=== PATIENT | male | born 1960 | race Caucasian/White ===

== ENCOUNTER 2017-09-25 22:12 | Inpatient (IN) ==
[2017-09-25 23:21] LABS: CKMB % 2.3 %
[2017-09-25 23:31] LABS: Troponin I Only 0.261 NG/ML (0.00-0.045)
[2017-09-25] MEDS ORDERED: ENOXAPARIN 80 MG/0.8 ML SYRINGE SUBCUT SCH (23:45)
[2017-09-25] MEDS ORDERED: GLUCAGON 1 MG VIAL IM PRN (23:49)
[2017-09-25] MEDS ORDERED: DEXTROSE 50% 25 GM/50 ML VIAL IV PRN (23:49)
[2017-09-26] MEDS: IPRATROPIUM 500 MCG/2.5 ML NEB RESP TX SCH ×2 (00:55→07:53)
[2017-09-26] MEDS: ALBUTEROL 2.5 MG/3 ML NEB RESP TX SCH ×2 (00:55→07:54)
[2017-09-26 01:45] LABS: Basophils # 0.1 10*3/uL (0.0-0.2); Basophils % 0.4 % (0.0-0.8); Eosinophils # 0.1 10*3/uL (0.0-0.87); Eosinophils % 0.5 % (0.00-10.9); Hematocrit 43.6 VOL% (42.0-52.0); Hemoglobin 14.5 GM/DL (14.0-18.0); Immature Granulocytes % 0.4 %; Immature Granulocytes Absolute 0.05 #; Lymphocytes # 2.1 10*3/uL (1.4-4.0); Lymphocytes % 16.5 % (21.2-54.2); Mean Corpuscular HGB Conc 33.3 GM/DL (32-36); Mean Corpuscular Hemoglobin 29 PG (27-34); Mean Corpuscular Volume 88.3 FL (87-102); Mean Platelet Volume 10.7 FL (9.6-12.0); Monocytes % 7.7 % (1.7-12.7); Neutrophils # 9.7 10*3/uL (1.4-7.4); Neutrophils % 74.5 % (38.7-73.9); Platelet Count 177 T/CUMM (130-400); Red Blood Count 4.94 MC/CUMM (3.8-5.5); Red Cell Distribution Width 14.1 % (9.3-17.3)
[2017-09-26 02:20] LABS: Calcium 8.2 MG/DL (8.5-10.1); Osmolality,Calculated 283.3 MOS/KG (273-304); Risk Ratio 7.44; Thyroid Stimulating Hormone 3.21 uIU/ml (0.358-3.74); VLDL CHOLESTEROL 23.4 MG/DL
[2017-09-26] MEDS: INSULIN LISPRO 100 UNIT/ML SUBCUT SCH ×4 (08:33→21:21)
[2017-09-26] MEDS: PANTOPRAZOLE 40 MG TABLET PO SCH (08:55)
[2017-09-26] MEDS ORDERED: ASPIRIN 325 MG TABLET PO SCH (09:00)
[2017-09-26] MEDS ORDERED: FUROSEMIDE 20 MG/2 ML VIAL IV SCH (09:00)
[2017-09-26] MEDS ORDERED: FUROSEMIDE 40 MG/4 ML VIAL IV SCH (09:14)
[2017-09-26] MEDS ORDERED: FUROSEMIDE 20 MG/2 ML VIAL IV ONE (09:25)
[2017-09-26] MEDS ORDERED: METOPROLOL SUCCINATE XL 25 MG TABLET PO ONE (10:30)
[2017-09-26] MEDS ORDERED: METOPROLOL TARTRATE 25 MG TABLET PO SCH ×2 (10:30→21:00)
[2017-09-26] MEDS ORDERED: LEVALBUTEROL 0.31 MG/3 ML NEB RESP TX PRN (10:51)
[2017-09-26] MEDS: ENOXAPARIN 80 MG/0.8 ML SYRINGE SUBCUT SCH ×2 (11:35→23:28)
[2017-09-26] MEDS: LOSARTAN 25 MG TABLET PO SCH (11:35)
[2017-09-26] MEDS: NITROGLYCERIN 2% OINT 1 INCH/GM PACK TOP SCH ×3 (11:54→23:39)
[2017-09-26] MEDS ORDERED: ALBUTEROL/IPRATROPIUM 3 ML NEB RESP TX SCH (13:00)
[2017-09-26] MEDS: FUROSEMIDE 40 MG/4 ML VIAL IV SCH (16:08)
[2017-09-26] MEDS ORDERED: METOPROLOL TARTRATE 5 MG/5 ML VIAL IV PRN (16:35)
[2017-09-26] MEDS: METOPROLOL TARTRATE 25 MG TABLET PO SCH (21:10)
[2017-09-27 05:41] LABS: Calcium 8.4 MG/DL (8.5-10.1); Osmolality,Calculated 277.7 MOS/KG (273-304); Potassium 3.7 MMOL/L (3.5-5.1)
[2017-09-27] MEDS: NITROGLYCERIN 2% OINT 1 INCH/GM PACK TOP SCH ×2 (05:52→11:21)
[2017-09-27] MEDS ORDERED: ASPIRIN CHEW 81 MG TABLET PO SCH (09:00)
[2017-09-27] MEDS: FUROSEMIDE 40 MG/4 ML VIAL IV SCH ×2 (09:53→15:09)
[2017-09-27] MEDS: LOSARTAN 25 MG TABLET PO SCH (09:58)
[2017-09-27] MEDS: METOPROLOL TARTRATE 25 MG TABLET PO SCH ×2 (09:58→21:52)
[2017-09-27] MEDS: ROSUVASTATIN 20 MG TABLET PO SCH (09:58)
[2017-09-27] MEDS: PANTOPRAZOLE 40 MG TABLET PO SCH (09:58)
[2017-09-27] MEDS: ENOXAPARIN 80 MG/0.8 ML SYRINGE SUBCUT SCH (10:00)
[2017-09-27] MEDS: INSULIN LISPRO 100 UNIT/ML SUBCUT SCH ×4 (10:14→21:52)
[2017-09-27 11:01] LABS: Troponin I Only 0.719 NG/ML (0.00-0.045)
[2017-09-27] MEDS ORDERED: POTASSIUM CHLORIDE RIDER 10 MEQ in PREMIX 1 EACH IV PRN (11:58)
[2017-09-27] MEDS ORDERED: MAGNESIUM SULF RIDER 2 GM in PREMIX 1 EACH IV PRN (11:58)
[2017-09-27] MEDS ORDERED: diphenhydrAMINE CAP 25 MG CAPSULE PO ONE (11:58)
[2017-09-27] MEDS ORDERED: SODIUM CHLORIDE 0.9% 1,000 ML IV SCH (12:00)
[2017-09-27] MEDS ORDERED: DIAZEPAM 5 MG TABLET PO ONE (12:03)
[2017-09-27] MEDS ORDERED: HEPARIN/NACL 0.9% 2 UNITS/ML 1,000 ML IV ONE (12:10)
[2017-09-27] MEDS ORDERED: LIDOCAINE 1% 20 ML VIAL ONE (12:14)
[2017-09-27] MEDS ORDERED: MIDAZOLAM 2 MG/2 ML VIAL ONE (12:39)
[2017-09-27] MEDS ORDERED: fentaNYL 100 MCG/2 ML VIAL ONE (12:39)
[2017-09-27] MEDS ORDERED: VERAPAMIL 5 MG/2 ML VIAL ONE (12:39)
[2017-09-27] MEDS ORDERED: NITROGLYCERIN DRIP 50 MG/250 ML BOTTLE IV ONE (12:39)
[2017-09-27] MEDS ORDERED: ACETAMINOPHEN 325 MG TABLET PO PRN (13:06)
[2017-09-27] MEDS: SPIRONOLACTONE 25 MG TABLET PO SCH (16:34)
[2017-09-28 04:45] LABS: Basophils % 0.3 % (0.0-0.8); Eosinophils # 0.2 10*3/uL (0.0-0.87); Eosinophils % 1.4 % (0.00-10.9); Hematocrit 43.8 VOL% (42.0-52.0); Hemoglobin 14.1 GM/DL (14.0-18.0); Immature Granulocytes % 0.4 %; Immature Granulocytes Absolute 0.05 #; Lymphocytes # 2.1 10*3/uL (1.4-4.0); Lymphocytes % 18.4 % (21.2-54.2); Mean Corpuscular HGB Conc 32.2 GM/DL (32-36); Mean Corpuscular Hemoglobin 29 PG (27-34); Mean Corpuscular Volume 90.9 FL (87-102); Mean Platelet Volume 10.8 FL (9.6-12.0); Monocytes # 1.4 10*3/uL (0.11-0.8); Monocytes % 12.1 % (1.7-12.7); Neutrophils # 7.5 10*3/uL (1.4-7.4); Neutrophils % 67.4 % (38.7-73.9); Platelet Count 149 T/CUMM (130-400); Red Blood Count 4.82 MC/CUMM (3.8-5.5); White Blood Count 11.2 T/CUMM (4-12)
[2017-09-28 05:16] LABS: Calcium 8.3 MG/DL (8.5-10.1); Osmolality,Calculated 280.5 MOS/KG (273-304)
[2017-09-28] MEDS ORDERED: CLOPIDOGREL 300 MG TABLET PO ONE (06:51)
[2017-09-28] MEDS: INSULIN LISPRO 100 UNIT/ML SUBCUT SCH ×4 (08:15→21:18)
[2017-09-28] MEDS: PANTOPRAZOLE 40 MG TABLET PO SCH (09:08)
[2017-09-28] MEDS: SPIRONOLACTONE 25 MG TABLET PO SCH (09:08)
[2017-09-28] MEDS: LOSARTAN 25 MG TABLET PO SCH (09:09)
[2017-09-28] MEDS: metOLazone 5 MG TABLET PO SCH (09:09)
[2017-09-28] MEDS: CARVEDILOL 6.25 MG TABLET PO SCH ×2 (09:09→21:17)
[2017-09-28] MEDS: CLOPIDOGREL 75 MG TABLET PO SCH (09:09)
[2017-09-28] MEDS: ROSUVASTATIN 20 MG TABLET PO SCH (09:09)
[2017-09-28] MEDS: ASPIRIN EC 81 MG TABLET PO SCH (09:09)
[2017-09-28] MEDS: FUROSEMIDE 40 MG/4 ML VIAL IV SCH ×2 (09:10→16:10)
[2017-09-29 06:18] LABS: Basophils # 0.1 10*3/uL (0.0-0.2); Basophils % 0.4 % (0.0-0.8); Eosinophils # 0.2 10*3/uL (0.0-0.87); Eosinophils % 1.8 % (0.00-10.9); Hematocrit 48.5 VOL% (42.0-52.0); Hemoglobin 15.9 GM/DL (14.0-18.0); Immature Granulocytes % 0.3 %; Immature Granulocytes Absolute 0.04 #; Lymphocytes # 2.1 10*3/uL (1.4-4.0); Mean Corpuscular HGB Conc 32.8 GM/DL (32-36); Mean Corpuscular Hemoglobin 29 PG (27-34); Mean Corpuscular Volume 88.3 FL (87-102); Mean Platelet Volume 10.4 FL (9.6-12.0); Monocytes # 1.3 10*3/uL (0.11-0.8); Neutrophils # 9.3 10*3/uL (1.4-7.4); Neutrophils % 71.5 % (38.7-73.9); Platelet Count 153 T/CUMM (130-400); Red Blood Count 5.49 MC/CUMM (3.8-5.5); Red Cell Distribution Width 13.4 % (9.3-17.3); White Blood Count 12.9 T/CUMM (4-12)
[2017-09-29 06:44] LABS: Osmolality,Calculated 268.4 MOS/KG (273-304); Potassium 3.6 MMOL/L (3.5-5.1)
[2017-09-29] MEDS: ROSUVASTATIN 20 MG TABLET PO SCH (09:20)
[2017-09-29] MEDS: PANTOPRAZOLE 40 MG TABLET PO SCH (09:20)
[2017-09-29] MEDS: LOSARTAN 25 MG TABLET PO SCH (09:20)
[2017-09-29] MEDS: CLOPIDOGREL 75 MG TABLET PO SCH (09:20)
[2017-09-29] MEDS: ASPIRIN EC 81 MG TABLET PO SCH (09:20)
[2017-09-29] MEDS: CARVEDILOL 6.25 MG TABLET PO SCH ×2 (09:21→20:58)
[2017-09-29] MEDS: SPIRONOLACTONE 25 MG TABLET PO SCH (09:21)
[2017-09-29] MEDS: metOLazone 5 MG TABLET PO SCH (09:32)
[2017-09-29] MEDS: INSULIN LISPRO 100 UNIT/ML SUBCUT SCH ×4 (09:34→20:59)
[2017-09-29] MEDS: FUROSEMIDE 40 MG/4 ML VIAL IV SCH (10:13)
[2017-09-29] MEDS ORDERED: MAGNESIUM SULF RIDER 2 GM in PREMIX 1 EACH IV ONE (10:15)
[2017-09-29] MEDS: POTASSIUM CHLORIDE 20 MEQ TABLET PO SCH (10:33)
[2017-09-29] MEDS: ASCORBIC ACID 500 MG TABLET PO SCH ×2 (10:34→20:58)
[2017-09-29] MEDS: MAGNESIUM CHLORIDE 64 MG TABLET PO SCH ×2 (10:34→20:58)
[2017-09-29] MEDS ORDERED: ONDANSETRON 4 MG/2 ML VIAL IV PRN (12:46)
[2017-09-29] MEDS ORDERED: SODIUM CHLORIDE 0.9% 250 ML IV ONE (13:12)
[2017-09-30 04:34] LABS: Basophils % 0.3 % (0.0-0.8); Eosinophils # 0.2 10*3/uL (0.0-0.87); Eosinophils % 1.5 % (0.00-10.9); Hematocrit 49.8 VOL% (42.0-52.0); Hemoglobin 16.4 GM/DL (14.0-18.0); Immature Granulocytes % 0.4 %; Immature Granulocytes Absolute 0.05 #; Lymphocytes # 2.4 10*3/uL (1.4-4.0); Lymphocytes % 18.5 % (21.2-54.2); Mean Corpuscular HGB Conc 32.9 GM/DL (32-36); Mean Corpuscular Hemoglobin 29 PG (27-34); Mean Corpuscular Volume 86.9 FL (87-102); Mean Platelet Volume 10.8 FL (9.6-12.0); Monocytes # 1.2 10*3/uL (0.11-0.8); Monocytes % 9.1 % (1.7-12.7); Neutrophils % 70.2 % (38.7-73.9); Platelet Count 162 T/CUMM (130-400); Red Blood Count 5.73 MC/CUMM (3.8-5.5); Red Cell Distribution Width 13.3 % (9.3-17.3); White Blood Count 12.8 T/CUMM (4-12)
[2017-09-30] MEDS ORDERED: SODIUM CHLORIDE 0.45% 1,000 ML IV SCH (05:00)
[2017-09-30 05:04] LABS: Calcium 9.3 MG/DL (8.5-10.1); Osmolality,Calculated 266.8 MOS/KG (273-304); Potassium 3.7 MMOL/L (3.5-5.1)
[2017-09-30] MEDS ORDERED: diphenhydrAMINE CAP 25 MG CAPSULE PO ONE (06:30)
[2017-09-30] MEDS: CARVEDILOL 6.25 MG TABLET PO SCH ×3 (06:48→20:57)
[2017-09-30] MEDS: CLOPIDOGREL 75 MG TABLET PO SCH ×2 (06:48→09:19)
[2017-09-30] MEDS: ASPIRIN EC 81 MG TABLET PO SCH ×2 (06:48→09:19)
[2017-09-30] MEDS: PANTOPRAZOLE 40 MG TABLET PO SCH ×2 (06:48→09:19)
[2017-09-30] MEDS ORDERED: DIAZEPAM 5 MG TABLET PO ONE (07:00)
[2017-09-30] MEDS: INSULIN LISPRO 100 UNIT/ML SUBCUT SCH ×4 (07:14→20:57)
[2017-09-30] MEDS ORDERED: LIDOCAINE 1% 20 ML VIAL MISC INJ ONE (08:43)
[2017-09-30] MEDS ORDERED: CLOPIDOGREL 300 MG TABLET PO ONE (08:43)
[2017-09-30] MEDS ORDERED: MIDAZOLAM 2 MG/2 ML VIAL IV ONE (08:43)
[2017-09-30] MEDS ORDERED: HEPARIN 5,000 UNIT/1 ML VIAL IV ONE (08:43)
[2017-09-30] MEDS ORDERED: fentaNYL 100 MCG/2 ML VIAL IV ONE (08:43)
[2017-09-30] MEDS: SPIRONOLACTONE 25 MG TABLET PO SCH (09:21)
[2017-09-30] MEDS: ROSUVASTATIN 20 MG TABLET PO SCH (12:55)
[2017-09-30] MEDS: POTASSIUM CHLORIDE 20 MEQ TABLET PO SCH (12:55)
[2017-09-30] MEDS: MAGNESIUM CHLORIDE 64 MG TABLET PO SCH ×2 (12:55→20:57)
[2017-09-30] MEDS: ASCORBIC ACID 500 MG TABLET PO SCH ×2 (12:56→20:57)
[2017-10-01 00:43] LABS: Basophils % 0.2 % (0.0-0.8); Eosinophils # 0.1 10*3/uL (0.0-0.87); Eosinophils % 0.9 % (0.00-10.9); Hematocrit 47.4 VOL% (42.0-52.0); Hemoglobin 15.9 GM/DL (14.0-18.0); Immature Granulocytes % 0.3 %; Immature Granulocytes Absolute 0.04 #; Lymphocytes # 1.9 10*3/uL (1.4-4.0); Lymphocytes % 15.3 % (21.2-54.2); Mean Corpuscular HGB Conc 33.5 GM/DL (32-36); Mean Corpuscular Hemoglobin 29 PG (27-34); Mean Corpuscular Volume 86.2 FL (87-102); Mean Platelet Volume 10.7 FL (9.6-12.0); Monocytes # 1.2 10*3/uL (0.11-0.8); Monocytes % 9.5 % (1.7-12.7); Neutrophils % 73.8 % (38.7-73.9); Platelet Count 142 T/CUMM (130-400); Red Cell Distribution Width 13.1 % (9.3-17.3); White Blood Count 12.1 T/CUMM (4-12)
[2017-10-01 01:05] LABS: Calcium 8.5 MG/DL (8.5-10.1); Osmolality,Calculated 269.5 MOS/KG (273-304); Potassium 3.2 MMOL/L (3.5-5.1)
[2017-10-01] MEDS: INSULIN LISPRO 100 UNIT/ML SUBCUT SCH (08:11)
[2017-10-01] MEDS: ASPIRIN EC 81 MG TABLET PO SCH (08:12)
[2017-10-01] MEDS: ASCORBIC ACID 500 MG TABLET PO SCH (08:12)
[2017-10-01] MEDS: MAGNESIUM CHLORIDE 64 MG TABLET PO SCH (08:12)
[2017-10-01] MEDS: POTASSIUM CHLORIDE 20 MEQ TABLET PO SCH (08:12)
[2017-10-01] MEDS: CARVEDILOL 6.25 MG TABLET PO SCH (08:12)
[2017-10-01] MEDS: SPIRONOLACTONE 25 MG TABLET PO SCH (08:12)
[2017-10-01] MEDS: ROSUVASTATIN 20 MG TABLET PO SCH (08:12)
[2017-10-01] MEDS: CLOPIDOGREL 75 MG TABLET PO SCH (08:12)
[2017-10-01] MEDS: PANTOPRAZOLE 40 MG TABLET PO SCH (08:13)
[2017-10-01 08:32] VITALS: BP 97/72
[2017-10-01] MEDS ORDERED: TICAGRELOR 90 MG TABLET PO SCH (09:00)
[2017-10-01] MEDS ORDERED: POTASSIUM CHLORIDE 20 MEQ TABLET PO ONE (09:12)
[2017-10-01] MEDS ORDERED: MAGNESIUM SULF RIDER 2 GM in PREMIX 1 EACH IV ONE (09:12)
[2017-10-01] MEDS ORDERED: PNEUMOCOCCAL VACCINE (23 VALENT) 0.5 ML VIAL IM ONE (10:38)
[2017-10-01] MEDS ORDERED: ATORVASTATIN 40 MG TABLET PO SCH (21:00)
== END 2017-10-01 12:17 | disposition home or self-care (01) | DRG 247 ==
LOC: EDBD → EDUNIT# → N.ED 22:12 → SUATTDRO 23:49 → N.EDINP 23:49 → N.TELES 09-26 00:15
PROVIDERS: ADMIT Family Medicine; ATTEND Internal Medicine
PROC: CLCCHCL (ICD-10-PCS; 2017-09-30 07:45)

== ENCOUNTER 2017-10-15 11:59 | Inpatient (IN) ==
[2017-10-15] MEDS ORDERED: SODIUM CHLORIDE 0.9% 500 ML IV STA (12:31)
[2017-10-15 12:53] LABS: Basophils % 0.4 % (0.0-0.8); Eosinophils # 0.2 10*3/uL (0.0-0.87); Eosinophils % 2.1 % (0.00-10.9); Hematocrit 45.8 VOL% (42.0-52.0); Hemoglobin 14.9 GM/DL (14.0-18.0); Immature Granulocytes % 0.4 %; Immature Granulocytes Absolute 0.03 #; Lymphocytes # 1.7 10*3/uL (1.4-4.0); Lymphocytes % 22.9 % (21.2-54.2); Mean Corpuscular HGB Conc 32.5 GM/DL (32-36); Mean Corpuscular Hemoglobin 29 PG (27-34); Mean Corpuscular Volume 87.9 FL (87-102); Mean Platelet Volume 9.8 FL (9.6-12.0); Monocytes # 0.5 10*3/uL (0.11-0.8); Monocytes % 6.5 % (1.7-12.7); Neutrophils # 5.1 10*3/uL (1.4-7.4); Neutrophils % 67.7 % (38.7-73.9); Platelet Count 239 T/CUMM (130-400); Red Blood Count 5.21 MC/CUMM (3.8-5.5); Red Cell Distribution Width 13.2 % (9.3-17.3); White Blood Count 7.6 T/CUMM (4-12)
[2017-10-15 13:05] LABS: INR 1.2; PT Patient Result 12.2 SECS
[2017-10-15 13:33] LABS: Albumin 2.8 G/DL (3.4-5.0); Bilirubin,Total 0.5 MG/DL (0.2-1.0); Calcium 9.4 MG/DL (8.5-10.1); Osmolality,Calculated 266.5 MOS/KG (273-304); Potassium 4.4 MMOL/L (3.5-5.1); Total Protein 7.7 G/DL (6.4-8.3); Troponin I Only 0.03 NG/ML (0.00-0.045)
[2017-10-15 15:19] LABS: Barbiturates Screen,Urine Negative (Negative); Benzodiazepines Screen,Urine Negative (Negative); Cannabinoid Screen,Urine Negative (Negative); Opiate Screen,Urine Negative (Negative); Phencyclidine Screen,Urine Negative (Negative)
[2017-10-15 15:22] LABS: Apearance,Urine CLEAR (Clear); Bilirubin,Urine Negative (Negative); Blood, Urine Negative (Negative); Glucose,Urine (UA) Negative (Negative); Ketones,Urine Negative (Negative); Mucus,Urine Occasional /LPF (Occasional); Nitrite,Urine Negative (Negative); Protein,Urine 30 MG/DL; RBC,Urine 2 /HPF (0-4); Squamous Epithelial Cell,Urine Occasional /HPF (0-10); Urine Color Yellow (Yellow); Urine Specific Gravity 1.013 (1.001-1.035); Urine Urobilinogen < 2.0 EU/DL (0.2-1.0); WBC,Urine 2 /HPF (0-6)
[2017-10-15] MEDS ORDERED: ONDANSETRON 4 MG/2 ML VIAL IV PRN (15:25)
[2017-10-15] MEDS ORDERED: ACETAMINOPHEN 325 MG TABLET PO PRN (15:25)
[2017-10-15] MEDS ORDERED: GLUCAGON 1 MG VIAL IM PRN (15:35)
[2017-10-15] MEDS ORDERED: DEXTROSE 50% 25 GM/50 ML VIAL IV PRN (15:35)
[2017-10-15] MEDS: SODIUM CHLORIDE 0.9% 1,000 ML IV SCH (15:45)
[2017-10-15] MEDS: INSULIN LISPRO 100 UNIT/ML SUBCUT SCH ×2 (17:35→20:23)
[2017-10-15] MEDS ORDERED: ALBUTEROL 2.5 MG/3 ML NEB RESP TX PRN (19:00)
[2017-10-15] MEDS: TICAGRELOR 90 MG TABLET PO SCH (21:15)
[2017-10-15] MEDS: ASCORBIC ACID 500 MG TABLET PO SCH (21:15)
[2017-10-15] MEDS: ATORVASTATIN 40 MG TABLET PO SCH (21:15)
[2017-10-16] MEDS: SODIUM CHLORIDE 0.9% 1,000 ML IV SCH (04:30)
[2017-10-16 04:50] LABS: Basophils % 0.4 % (0.0-0.8); Eosinophils # 0.2 10*3/uL (0.0-0.87); Hematocrit 42.3 VOL% (42.0-52.0); Hemoglobin 13.6 GM/DL (14.0-18.0); Immature Granulocytes % 0.3 %; Immature Granulocytes Absolute 0.02 #; Lymphocytes # 2.4 10*3/uL (1.4-4.0); Lymphocytes % 32.1 % (21.2-54.2); Mean Corpuscular HGB Conc 32.2 GM/DL (32-36); Mean Corpuscular Hemoglobin 29 PG (27-34); Mean Corpuscular Volume 89.1 FL (87-102); Mean Platelet Volume 10.2 FL (9.6-12.0); Monocytes # 0.5 10*3/uL (0.11-0.8); Monocytes % 7.1 % (1.7-12.7); Neutrophils # 4.3 10*3/uL (1.4-7.4); Neutrophils % 58.1 % (38.7-73.9); Platelet Count 224 T/CUMM (130-400); Red Blood Count 4.75 MC/CUMM (3.8-5.5); Red Cell Distribution Width 13.1 % (9.3-17.3); White Blood Count 7.4 T/CUMM (4-12)
[2017-10-16 05:42] LABS: Calcium 8.5 MG/DL (8.5-10.1); Osmolality,Calculated 275.7 MOS/KG (273-304); Potassium 4.4 MMOL/L (3.5-5.1); Risk Ratio 4.32; Thyroid Stimulating Hormone 1.2 uIU/ml (0.358-3.74); VLDL CHOLESTEROL 27.6 MG/DL
[2017-10-16] MEDS ORDERED: MAGNESIUM SULF RIDER 2 GM in PREMIX 1 EACH IV PRN (06:33)
[2017-10-16] MEDS ORDERED: MAGNESIUM SULF RIDER 4 GM in PREMIX 1 EACH IV PRN (06:33)
[2017-10-16] MEDS: INSULIN LISPRO 100 UNIT/ML SUBCUT SCH ×4 (08:31→21:20)
[2017-10-16] MEDS: NICOTINE 21 MG/24 HR PATCH TRANSDERM SCH (08:57)
[2017-10-16] MEDS: PANTOPRAZOLE 40 MG TABLET PO SCH (08:59)
[2017-10-16] MEDS: AMIODARONE 200 MG TABLET PO SCH (08:59)
[2017-10-16] MEDS: ASCORBIC ACID 500 MG TABLET PO SCH ×2 (08:59→20:58)
[2017-10-16] MEDS: TICAGRELOR 90 MG TABLET PO SCH ×2 (09:00→20:57)
[2017-10-16] MEDS: ASPIRIN EC 81 MG TABLET PO SCH (09:00)
[2017-10-16] MEDS: CETIRIZINE 10 MG TABLET PO SCH (09:00)
[2017-10-16] MEDS: POTASSIUM CHLORIDE 20 MEQ TABLET PO SCH (09:00)
[2017-10-16] MEDS ORDERED: MAGNESIUM OXIDE 400 MG TABLET PO SCH (12:00)
[2017-10-16] MEDS: MAGNESIUM CHLORIDE 64 MG TABLET PO SCH ×2 (13:07→20:57)
[2017-10-16] MEDS: CARVEDILOL 6.25 MG TABLET PO SCH (20:58)
[2017-10-16] MEDS: ATORVASTATIN 40 MG TABLET PO SCH (20:58)
[2017-10-17 04:14] LABS: Basophils % 0.5 % (0.0-0.8); Eosinophils # 0.1 10*3/uL (0.0-0.87); Eosinophils % 1.6 % (0.00-10.9); Hematocrit 44.2 VOL% (42.0-52.0); Hemoglobin 14.4 GM/DL (14.0-18.0); Immature Granulocytes % 0.3 %; Immature Granulocytes Absolute 0.02 #; Lymphocytes # 2.4 10*3/uL (1.4-4.0); Lymphocytes % 32.3 % (21.2-54.2); Mean Corpuscular HGB Conc 32.6 GM/DL (32-36); Mean Corpuscular Hemoglobin 29 PG (27-34); Mean Corpuscular Volume 87.5 FL (87-102); Mean Platelet Volume 9.5 FL (9.6-12.0); Monocytes # 0.5 10*3/uL (0.11-0.8); Monocytes % 6.5 % (1.7-12.7); Neutrophils # 4.4 10*3/uL (1.4-7.4); Neutrophils % 58.8 % (38.7-73.9); Platelet Count 200 T/CUMM (130-400); Red Blood Count 5.05 MC/CUMM (3.8-5.5); Red Cell Distribution Width 13.1 % (9.3-17.3); White Blood Count 7.4 T/CUMM (4-12)
[2017-10-17 04:41] LABS: Calcium 8.6 MG/DL (8.5-10.1); Osmolality,Calculated 278.4 MOS/KG (273-304); Potassium 4.5 MMOL/L (3.5-5.1)
[2017-10-17] MEDS: INSULIN LISPRO 100 UNIT/ML SUBCUT SCH ×4 (08:18→21:45)
[2017-10-17] MEDS: CARVEDILOL 6.25 MG TABLET PO SCH ×2 (09:11→21:45)
[2017-10-17] MEDS: AMIODARONE 200 MG TABLET PO SCH (09:11)
[2017-10-17] MEDS: PANTOPRAZOLE 40 MG TABLET PO SCH (09:11)
[2017-10-17] MEDS: CETIRIZINE 10 MG TABLET PO SCH (09:11)
[2017-10-17] MEDS: ASCORBIC ACID 500 MG TABLET PO SCH ×2 (09:11→21:44)
[2017-10-17] MEDS: TICAGRELOR 90 MG TABLET PO SCH ×2 (09:11→21:45)
[2017-10-17] MEDS: ASPIRIN EC 81 MG TABLET PO SCH (09:11)
[2017-10-17] MEDS: POTASSIUM CHLORIDE 20 MEQ TABLET PO SCH (09:11)
[2017-10-17] MEDS: MAGNESIUM CHLORIDE 64 MG TABLET PO SCH ×2 (09:15→21:44)
[2017-10-17] MEDS: NICOTINE 21 MG/24 HR PATCH TRANSDERM SCH (09:30)
[2017-10-17] MEDS: ATORVASTATIN 40 MG TABLET PO SCH (21:44)
[2017-10-18 05:10] LABS: Basophils % 0.4 % (0.0-0.8); Eosinophils # 0.1 10*3/uL (0.0-0.87); Eosinophils % 1.8 % (0.00-10.9); Hematocrit 44.5 VOL% (42.0-52.0); Hemoglobin 15.2 GM/DL (14.0-18.0); Immature Granulocytes % 0.3 %; Immature Granulocytes Absolute 0.02 #; Lymphocytes # 2.5 10*3/uL (1.4-4.0); Lymphocytes % 32.1 % (21.2-54.2); Mean Corpuscular HGB Conc 34.2 GM/DL (32-36); Mean Corpuscular Hemoglobin 29 PG (27-34); Mean Corpuscular Volume 84.9 FL (87-102); Mean Platelet Volume 10.1 FL (9.6-12.0); Monocytes # 0.6 10*3/uL (0.11-0.8); Monocytes % 7.4 % (1.7-12.7); Neutrophils # 4.5 10*3/uL (1.4-7.4); Platelet Count 198 T/CUMM (130-400); Red Blood Count 5.24 MC/CUMM (3.8-5.5); White Blood Count 7.8 T/CUMM (4-12)
[2017-10-18 05:35] LABS: Calcium 8.8 MG/DL (8.5-10.1); Osmolality,Calculated 278.5 MOS/KG (273-304); Potassium 4.5 MMOL/L (3.5-5.1)
[2017-10-18] MEDS: MAGNESIUM CHLORIDE 64 MG TABLET PO SCH ×2 (11:20→21:22)
[2017-10-18] MEDS: CETIRIZINE 10 MG TABLET PO SCH (11:21)
[2017-10-18] MEDS: ASPIRIN EC 81 MG TABLET PO SCH (11:21)
[2017-10-18] MEDS: TICAGRELOR 90 MG TABLET PO SCH ×2 (11:21→21:22)
[2017-10-18] MEDS: AMIODARONE 200 MG TABLET PO SCH (11:21)
[2017-10-18] MEDS: NICOTINE 21 MG/24 HR PATCH TRANSDERM SCH (11:21)
[2017-10-18] MEDS: PANTOPRAZOLE 40 MG TABLET PO SCH (11:21)
[2017-10-18] MEDS: ASCORBIC ACID 500 MG TABLET PO SCH ×2 (11:21→21:22)
[2017-10-18] MEDS: CARVEDILOL 6.25 MG TABLET PO SCH ×2 (11:21→21:22)
[2017-10-18] MEDS: POTASSIUM CHLORIDE 20 MEQ TABLET PO SCH (11:21)
[2017-10-18] MEDS: INSULIN LISPRO 100 UNIT/ML SUBCUT SCH ×4 (12:06→21:13)
[2017-10-18] MEDS: ATORVASTATIN 40 MG TABLET PO SCH (21:22)
[2017-10-19 05:50] LABS: Hematocrit 44.7 VOL% (42.0-52.0); Hemoglobin 14.9 GM/DL (14.0-18.0)
[2017-10-19 06:10] LABS: Calcium 8.9 MG/DL (8.5-10.1); Osmolality,Calculated 275.7 MOS/KG (273-304); Potassium 4.4 MMOL/L (3.5-5.1)
[2017-10-19] MEDS: INSULIN LISPRO 100 UNIT/ML SUBCUT SCH ×2 (08:39→12:30)
[2017-10-19] MEDS ORDERED: MAGNESIUM OXIDE 400 MG TABLET PO SCH (09:00)
[2017-10-19] MEDS ORDERED: TISSUE ADHESIVE 1 EACH APPLICATOR TOP ONE (09:42)
[2017-10-19] MEDS ORDERED: LIDOCAINE 1%/EPI INJ 20 ML VIAL ONE (09:42)
[2017-10-19] MEDS: MAGNESIUM CHLORIDE 64 MG TABLET PO SCH (11:15)
[2017-10-19] MEDS: AMIODARONE 200 MG TABLET PO SCH (11:16)
[2017-10-19] MEDS: TICAGRELOR 90 MG TABLET PO SCH (11:16)
[2017-10-19] MEDS: ASPIRIN EC 81 MG TABLET PO SCH (11:16)
[2017-10-19] MEDS: CARVEDILOL 6.25 MG TABLET PO SCH (11:16)
[2017-10-19] MEDS: POTASSIUM CHLORIDE 20 MEQ TABLET PO SCH (11:16)
[2017-10-19] MEDS: NICOTINE 21 MG/24 HR PATCH TRANSDERM SCH (11:17)
[2017-10-19] MEDS: PANTOPRAZOLE 40 MG TABLET PO SCH (11:17)
[2017-10-19] MEDS: ASCORBIC ACID 500 MG TABLET PO SCH (11:17)
[2017-10-19] MEDS: CETIRIZINE 10 MG TABLET PO SCH (11:17)
[2017-10-19 11:44] VITALS: BP 131/83
[2017-10-19] MEDS ORDERED: MAGNESIUM CHLORIDE 64 MG TABLET PO SCH (21:00)
== END 2017-10-19 14:55 | disposition home or self-care (01) | DRG 262 ==
LOC: N.ED 11:59 → SUATTDRO 13:57 → N.EDINP 13:57 → N.TELES 15:12
PROVIDERS: ADMIT Internal Medicine Nephrology; ATTEND Family Medicine

== ENCOUNTER 2017-11-13 11:44 | Inpatient (IN) ==
[2017-11-13] MEDS ORDERED: ONDANSETRON 4 MG/2 ML VIAL IV STA (12:02)
[2017-11-13 12:53] LABS: Basophils % 0.4 % (0.0-0.8); Eosinophils # 0.1 10*3/uL (0.0-0.87); Eosinophils % 1.5 % (0.00-10.9); Hematocrit 42.8 VOL% (42.0-52.0); Hemoglobin 14.2 GM/DL (14.0-18.0); Immature Granulocytes % 0.3 %; Immature Granulocytes Absolute 0.02 #; Lymphocytes # 1.9 10*3/uL (1.4-4.0); Mean Corpuscular HGB Conc 33.2 GM/DL (32-36); Mean Corpuscular Hemoglobin 30 PG (27-34); Mean Corpuscular Volume 89.7 FL (87-102); Mean Platelet Volume 10.2 FL (9.6-12.0); Monocytes # 0.5 10*3/uL (0.11-0.8); Monocytes % 6.2 % (1.7-12.7); Neutrophils # 4.8 10*3/uL (1.4-7.4); Neutrophils % 65.6 % (38.7-73.9); Platelet Count 130 T/CUMM (130-400); Red Blood Count 4.77 MC/CUMM (3.8-5.5); Red Cell Distribution Width 16.2 % (9.3-17.3); White Blood Count 7.3 T/CUMM (4-12)
[2017-11-13 13:06] LABS: INR 1.1; PT Patient Result 11.2 SECS; Partial Thromboplastin Time 26.8 SECS (0-40)
[2017-11-13 13:14] LABS: Alanine Aminotransferase 31 U/L (16-61); Albumin 3.6 G/DL (3.4-5.0); Alkaline Phosphatase 121 U/L (45-117); Aspartate Amino Transferase 12 U/L (0-37); Blood Urea Nitrogen 13 MG/DL (7-18); Calcium 8.7 MG/DL (8.5-10.1); Glucose 128 MG/DL (74-106); Osmolality,Calculated 276.7 MOS/KG (273-304); Sodium 138 MMOL/L (136-145); Total Protein 7.2 G/DL (6.4-8.3); Troponin I Only 0.022 NG/ML (0.00-0.045)
[2017-11-13] MEDS ORDERED: ACETAMINOPHEN 325 MG TABLET PO PRN (15:22)
[2017-11-13] MEDS ORDERED: NICOTINE 21 MG/24 HR PATCH TRANSDERM PRN (15:22)
[2017-11-13] MEDS ORDERED: ONDANSETRON 4 MG/2 ML VIAL IV PRN (15:22)
[2017-11-13] MEDS ORDERED: DEXTROSE 50% 25 GM/50 ML VIAL IV PRN (15:30)
[2017-11-13] MEDS ORDERED: LEVOFLOXACIN INJ 750 MG in PREMIX 1 EACH IV SCH (15:30)
[2017-11-13] MEDS ORDERED: GLUCAGON 1 MG VIAL IM PRN (15:30)
[2017-11-13] MEDS ORDERED: FUROSEMIDE 40 MG/4 ML VIAL IV STA (15:53)
[2017-11-13] MEDS: RACEPINEPHRINE 0.5 ML NEB RESP TX SCH ×2 (15:58→19:10)
[2017-11-13] MEDS: INSULIN LISPRO 100 UNIT/ML SUBCUT SCH ×2 (18:26→20:53)
[2017-11-13] MEDS: PIPERACILLIN/TAZOBACTAM 3,375 MG in SODIUM CHLORIDE 0.9% 100 ML IV SCH (18:36)
[2017-11-13] MEDS: MAGNESIUM OXIDE 400 MG TABLET PO SCH (20:48)
[2017-11-13] MEDS: ATORVASTATIN 40 MG TABLET PO SCH (20:48)
[2017-11-13] MEDS: ASCORBIC ACID 500 MG TABLET PO SCH (20:49)
[2017-11-13] MEDS: BENZONATATE 100 MG CAPSULE PO SCH (20:49)
[2017-11-13] MEDS: CARVEDILOL 6.25 MG TABLET PO SCH (20:52)
[2017-11-14] MEDS: PIPERACILLIN/TAZOBACTAM 3,375 MG in SODIUM CHLORIDE 0.9% 100 ML IV SCH ×3 (01:41→18:25)
[2017-11-14 07:01] LABS: Basophils % 0.5 % (0.0-0.8); Eosinophils # 0.1 10*3/uL (0.0-0.87); Eosinophils % 1.9 % (0.00-10.9); Hematocrit 42.8 VOL% (42.0-52.0); Hemoglobin 14.2 GM/DL (14.0-18.0); Immature Granulocytes % 0.4 %; Immature Granulocytes Absolute 0.03 #; Lymphocytes # 2.7 10*3/uL (1.4-4.0); Lymphocytes % 37.1 % (21.2-54.2); Mean Corpuscular HGB Conc 33.2 GM/DL (32-36); Mean Corpuscular Hemoglobin 30 PG (27-34); Mean Corpuscular Volume 89.7 FL (87-102); Mean Platelet Volume 10.9 FL (9.6-12.0); Monocytes # 0.6 10*3/uL (0.11-0.8); Neutrophils # 3.8 10*3/uL (1.4-7.4); Neutrophils % 52.1 % (38.7-73.9); Platelet Count 125 T/CUMM (130-400); Red Blood Count 4.77 MC/CUMM (3.8-5.5); Red Cell Distribution Width 16.6 % (9.3-17.3); White Blood Count 7.3 T/CUMM (4-12)
[2017-11-14 07:03] LABS: Calcium 9.2 MG/DL (8.5-10.1); Osmolality,Calculated 281.3 MOS/KG (273-304); Potassium 4.4 MMOL/L (3.5-5.1); Risk Ratio 3.63; VLDL CHOLESTEROL 19.6 MG/DL
[2017-11-14] MEDS: RACEPINEPHRINE 0.5 ML NEB RESP TX SCH ×3 (07:03→19:58)
[2017-11-14] MEDS: INSULIN LISPRO 100 UNIT/ML SUBCUT SCH ×4 (07:57→22:34)
[2017-11-14] MEDS: BENZONATATE 100 MG CAPSULE PO SCH ×3 (11:40→20:42)
[2017-11-14] MEDS: PANTOPRAZOLE 40 MG TABLET PO SCH (11:40)
[2017-11-14] MEDS: ASCORBIC ACID 500 MG TABLET PO SCH ×2 (11:40→20:42)
[2017-11-14] MEDS: CETIRIZINE 10 MG TABLET PO SCH (11:40)
[2017-11-14] MEDS: MAGNESIUM OXIDE 400 MG TABLET PO SCH ×2 (11:40→20:42)
[2017-11-14] MEDS: CARVEDILOL 6.25 MG TABLET PO SCH ×2 (11:41→18:26)
[2017-11-14] MEDS: AMIODARONE 200 MG TABLET PO SCH (11:41)
[2017-11-14] MEDS: ATORVASTATIN 40 MG TABLET PO SCH (20:42)
[2017-11-15] MEDS: PIPERACILLIN/TAZOBACTAM 3,375 MG in SODIUM CHLORIDE 0.9% 100 ML IV SCH ×2 (01:57→11:47)
[2017-11-15 07:06] LABS: Basophils % 0.4 % (0.0-0.8); Eosinophils # 0.2 10*3/uL (0.0-0.87); Eosinophils % 2.2 % (0.00-10.9); Hematocrit 42.4 VOL% (42.0-52.0); Hemoglobin 14.4 GM/DL (14.0-18.0); Immature Granulocytes % 0.4 %; Immature Granulocytes Absolute 0.03 #; Lymphocytes # 2.5 10*3/uL (1.4-4.0); Lymphocytes % 33.9 % (21.2-54.2); Mean Corpuscular Hemoglobin 30 PG (27-34); Mean Corpuscular Volume 86.9 FL (87-102); Mean Platelet Volume 10.8 FL (9.6-12.0); Monocytes # 0.6 10*3/uL (0.11-0.8); Monocytes % 8.4 % (1.7-12.7); Neutrophils % 54.7 % (38.7-73.9); Platelet Count 136 T/CUMM (130-400); Red Blood Count 4.88 MC/CUMM (3.8-5.5); Red Cell Distribution Width 16.7 % (9.3-17.3); White Blood Count 7.4 T/CUMM (4-12)
[2017-11-15] MEDS ORDERED: LIDOCAINE 1% 20 ML VIAL MISC INJ ONE (07:13)
[2017-11-15] MEDS ORDERED: LIDOCAINE 2% 20 ML VIAL RESP TX ONE (07:13)
[2017-11-15] MEDS: RACEPINEPHRINE 0.5 ML NEB RESP TX SCH ×2 (07:16→15:15)
[2017-11-15 07:23] LABS: Calcium 8.6 MG/DL (8.5-10.1); Osmolality,Calculated 280.4 MOS/KG (273-304); Potassium 4.1 MMOL/L (3.5-5.1)
[2017-11-15] MEDS: INSULIN LISPRO 100 UNIT/ML SUBCUT SCH ×2 (07:53→12:09)
[2017-11-15] MEDS: CARVEDILOL 6.25 MG TABLET PO SCH (08:13)
[2017-11-15] MEDS: AMIODARONE 200 MG TABLET PO SCH (08:13)
[2017-11-15] MEDS: MAGNESIUM OXIDE 400 MG TABLET PO SCH (08:17)
[2017-11-15] MEDS: PANTOPRAZOLE 40 MG TABLET PO SCH (08:17)
[2017-11-15] MEDS: BENZONATATE 100 MG CAPSULE PO SCH ×2 (08:18→14:47)
[2017-11-15] MEDS: ASCORBIC ACID 500 MG TABLET PO SCH (08:18)
[2017-11-15] MEDS: CETIRIZINE 10 MG TABLET PO SCH (08:18)
[2017-11-15] MEDS ORDERED: PROMETHAZINE 25 MG/1 ML VIAL IM ONE (08:30)
[2017-11-15] MEDS ORDERED: MIDAZOLAM 2 MG/2 ML VIAL IV ONE (08:30)
[2017-11-15] MEDS ORDERED: NITROGLYCERIN SL 0.4 MG TABLET SL PRN (09:14)
[2017-11-15] MEDS ORDERED: MIDAZOLAM 2 MG/2 ML VIAL ONE (11:12)
[2017-11-15] MEDS ORDERED: OXYMETAZOLINE 0.05% NASAL SPRAY 15 ML BOTTLE BOTH NARES ONE (12:00)
[2017-11-15] MEDS ORDERED: LIDOCAINE 2% TOP JELLY 5 ML TUBE TOP ONE (12:00)
[2017-11-15 12:13] VITALS: BP 110/66
[2017-11-15] MEDS ORDERED: ALBUTEROL 2.5 MG/3 ML NEB RESP TX PRN (14:09)
[2017-11-15] MEDS ORDERED: TICAGRELOR 90 MG TABLET PO SCH (14:30)
[2017-11-15] MEDS ORDERED: POTASSIUM CHLORIDE 20 MEQ TABLET PO SCH (14:30)
[2017-11-15] MEDS ORDERED: ASPIRIN EC 81 MG TABLET PO SCH (14:30)
[2017-11-15] MEDS ORDERED: MUPIROCIN 2% OINT 22 GM TUBE TOP SCH (15:00)
== END 2017-11-15 16:30 | disposition home or self-care (01) | DRG 204 ==
LOC: N.ED 11:44 → SUATTDRO 14:59 → N.EDINP 14:59 → N.5E 17:30
PROVIDERS: ADMIT Internal Medicine; ATTEND Family Medicine